=== PATIENT | female | born 1985 | race Caucasian/White ===

== ENCOUNTER 2019-08-27 04:50 | Inpatient (IN) | payer OTHER ==
[~2019-08-27] VITALS: Ht 160 cm; Wt 79.5 kg
[2019-08-27] VITALS (61 sets, daily range): BP systolic 99–149; BP diastolic 52–92; PULSE 63–110; TEMP 97.9–99.5
[~2019-08-27 04:50] MED LIST: ATIVAN 0.50.5 MG/TAB PO; MEDROL 4MG DOSPA4 MG PO; NO HOME MEDICATIONS; bcp
[2019-08-27] MEDS ORDERED: ZOVIRAX400 MG PO (05:54)
[2019-08-27] MEDS ORDERED: PROTONIX20 MG PO (05:56)
[2019-08-27] MEDS ORDERED: PRENATAL TABLET PO (05:57)
[2019-08-27] MEDS ORDERED: TUMS500 MG (05:57)
--- NOTE | 2019-08-27 06:25 | NUR ---
Report recieved from Eldon RN. Patient resting in bed and has no needs at this time. 0640: Patient off monitors to void. Patient on birthing ball 0720: Dr. Amaya at bedside and assessing patient and FHR strip. 0722: Sono done at this time and vertex position confirmed. SVE per physician , no new orders at this time. Patient resting in bed.
[2019-08-27 06:56] LABS: BASO % 0.3 % (0.0-2.0); EOS # 0.1 (0.0-0.7); GRAN # 7.7 (1.4-6.5); GRAN % 74.8 % (42.2-75.2); HEMOGLOBIN 11.3 g/dl (12.5-16.0); LYMPH # 1.8 (1.2-3.4); LYMPH % 17.8 % (20.0-51.0); MEAN CELL VOLUME 87 fl (80.0-100.0); MEAN CORPUSCULAR HEMOGLOBIN 28 pg (27.0-31.0); MEAN CORPUSCULAR HGB CONC 33 g/dl (33.0-37.0); MEAN PLATELET VOLUME 12.5 fl (7.4-10.4); MONO # 0.6 (0.1-0.6); MONO % 5.5 % (1.7-9.3); PLATELET COUNT 161 K/mm3 (130-400); RED BLOOD COUNT 3.99 M/mm3 (4.10-5.30); REDCELL DISTRIBUTION WIDTH-CV 12.8 % (11.5-14.5)
[2019-08-27 07:15] LABS: HEMATOCRIT 34.5 % (37.0-47.0)
--- NOTE | 2019-08-27 08:30 | NUR ---
Patient requesting epidural and Amee ANDRADE notified. LR bolus started. 0840: Patient sitting on edge of bed and Amee ANDRADE at bedside for placement of epidural. Difficulty tracing FHR during this time due to maternal position. 0851: Single shot given and patient tolerates well. 0900: Patient repositiioned and plan of care discussed/safety precations gone over. 0930: Kuhn catheter placed and patient tolerates well. SVE-4-5/85/-1 Patient left lateral and right leg in stirrup.
--- NOTE | 2019-08-27 10:45 | NUR ---
Dr. Amaya at nurses station reviewing FHR strip. Orders to start pitocin at this time. 1053: Pitocin orders/plan of care discussed with patient and patient agrees to plan. Pitocin started at this time per protocol.
--- NOTE | 2019-08-27 12:30 | NUR ---
APRIL--/-[address] Amaya at nurses station updated and reviewing FHR strip, no new orders at this time. 1400:APRIL-/- and Dr. Amaya updated.
--- NOTE | 2019-08-27 18:34 | NUR ---
2 consecutive late declerations down to 135 bpm noted after contractions. Pt repositioned to right lateral with peanut ball.
--- NOTE | 2019-08-27 19:04 | NUR ---
Dr. Amaya at bedside for SVE. /+1. Physician discussing plan of care with patient and spouse. Verbal orders to increase pitocin to 18 mL/hr. Will continue to change patient position frequently to facilitate cervical change.
--- NOTE | 2019-08-27 20:00 | NUR ---
Dr. Amaya at bedside for SVE. Complete/+1. Verbal orders to start pushing with patient.
--- NOTE | 2019-08-27 20:52 | NUR ---
2004 - Pt positioned into footplates. Educated on pushing techniques, pt verbalized understanding. Initial push at this time. 2014 - Pt pushing well with contractions. Variable decelerations down to 90 bpm with pushing with spontaneous return to baseline after contraction. Kuhn catheter removed at this time. 30 mL bloody urine. 2029 - Pt continues to push well with contractions. Variable decelerations down to 90-110 bpm noted with pushes. Spontaneous return to baseline after push. Dr. Amaya updated on pushing progress. Physician remains on unit. 2047 - Pt continues to push well with contractions. Variable decelerations down to 100 bpm noted with pushes with spontaneous return to baseline after pushing. Dr. Amaya called to room for delivery. Nursery updated. 2049 - Dr. Amaya gowned and gloved at perineum, pt continues pushing well. Pericare provided. 2051 - Spontaneous vaginal delivery of viable girl. Nuchal cord x 1, reduced easily. Infant placed on mother's abdomen. Care of infant assumed to Nursery RNCherry RN. Cord clamped x 2 and cut by FOB. Pitocin off. 2054 - Spontaneous delivery of intact placenta. Repair of second degree laceration by Dr. Amaya. Pitocin restarted at 333 mL/hr per protocol. Fundal massage by Dr. Amaya, firm and at umbilicus. Epidural off. 2114 - Pericare provided. New chux beneath patient. Ice pack to perineum. Pt repositioned in bed for comfort. recovery started. See physician delivery note.
--- NOTE | 2019-08-27 23:10 | NUR ---
Pt able to lift and hold each leg off of bed for 5 seconds. Pt repositioned to sitting on edge of bed. Epidural catheter removed at this time. Tip smooth, blue, and intact. Pt tolerated procedure well. Pt able to ambulate to bathroom independently. Pt able to void 500 mL bloody urine. Pericare explained and provided. Mesh panties and peripad applied. Clean gown on. Pt transferred to room 207 with belongings.
[2019-08-28 00:14] VITALS: BP 108/40; PULSE 86; TEMP 99
[2019-08-28 05:15] VITALS: BP 105/65; PULSE 80; TEMP 97.6
[2019-08-28 08:02] VITALS: BP 109/51; PULSE 75; TEMP 97.3
[2019-08-28 08:26] LABS: HEMATOCRIT 29.9 % (37.0-47.0); HEMOGLOBIN 9.7 g/dl (12.5-16.0)
--- NOTE | 2019-08-28 10:14 | NUR ---
Initial visit attempt; Nurses with patient, Credit Collector left card of congratulations for the of her daughter and information regarding the availability of spiritual care at our hospital.
[2019-08-28] MEDS ORDERED: MOTRIN 800800 MG/TAB PO (15:43)
[2019-08-28 21:00] VITALS: BP 109/60; PULSE 80
[2019-08-29 08:15] VITALS: BP 109/58; PULSE 85; TEMP 97.3
[2019-08-29] MEDS ORDERED: NEWMANS TOP (11:18)
== END 2019-08-29 12:30 | disposition home or self-care (01) | DRG 807 ==
LOC: LDRO 04:50 → OB 05:30 → LDR 05:30 → OB 23:42 → LDRO 08-30 14:18
PROVIDERS: Obstetrics & Gynecology; ADMIT Obstetrics & Gynecology
PROC: 10E0XZZ Delivery of Products of Conception, External Approach (ICD-10-PCS; principal; 2019-08-27)
PROC: 0KQM0ZZ Repair Perineum Muscle, Open Approach (ICD-10-PCS; 2019-08-27)
DX: O69.81X0 Labor and delivery complicated by cord around neck, without compression, not applicable or unspecified (principal); Z37.0 Single live birth; O70.1 Second degree perineal laceration during delivery; O99.334 Smoking (tobacco) complicating childbirth; F17.210 Nicotine dependence, cigarettes, uncomplicated; Z3A.39 39 weeks gestation of pregnancy; Z23 Encounter for immunization
CPT/HCPCS: J2405; J2590; J2795; J7120

== ENCOUNTER → 2019-10-04 | Outpatient (CLI) | payer OTHER ==
[~2019-10-04] MED LIST changes: +MOTRIN 800800 MG/TAB PO; +NEWMANS TOP; +PRENATAL TABLET PO; +PROTONIX20 MG PO; +TUMS500 MG; +ZOVIRAX400 MG PO
--- NOTE | 2019-10-04 13:34 | NUR ---
Pt, Darling Madison, in for outpatient consult with 5 week old baby girl, Robby Head, with concerns about long feedings, latch quality and sore nipples. Robby was born on [birth year] to this first time mom by and weighed 6#6.5oz (2905 gms). Pt states she uses nipple shield at some feedings, but the primary concern is that Robby will nurse for 40+ minutes per breast each feeding and still be hungry so she is supplemented 2-3oz EBM, after which Darling still has to pump to have enough supplement for next feeding. Today Robby weighs 8#9.2oz (3890 gms), a gain of 4 ounces from her appointment with Dr. Urrutia on 09/29/19 where pt reports she weighed 8#5oz. Pt places Robby to the left breast first and finds latch more comfortable with the cross cradle. Robby nurses bilaterally for about 10-15 minutes before her effort dwindles. Post feed weight is 8#12.4oz (3978 gms) for a gain of 3.0oz (84gms). Robby continues to act hungry so is provided 3oz EBM by bottle. Pt pumps about 1oz after the feeding. LC evaluates Robby's oral structures and notes a mildly elevated hard palate that may make compression of the nipple against the roof of the mouth difficult so she does not thouroughly empty the breast. She may have a slight tongue tie as well; she can extend the tounge across the lip but as the nursing proceeds she start making clicking noises associated with the tongue dropping off the nipple. With suck evaluation on a gloved finger Robby extends her tongue nicely but does have a [id number] motion with the tongue sliding in and out. She seems to keep the tongue across the gum line but this motion would contribute to the baby not staying latched well. POC: Continue but limit time at breast to 10-15 min per side. Continue supplement of EBM, 2-3oz, followed by pumping. Consider further evaluation for tongue tie with provider that manages treatment. F/U: Walk-in clinic on Tuesdays as desired, with Dr. Urrutia as scheduled. Questions invited and answered.
== END ==
LOC: OLC 12:52
DX: Z39.1 Encounter for care and examination of lactating mother (principal)

== ENCOUNTER → 2021-10-27 | Outpatient (CLI) | payer OTHER | LOC: COL.RAD 10:06 | DX: R10.11 Right upper quadrant pain (principal) ==

== ENCOUNTER 2022-03-02 19:41 | Inpatient (IN) | payer OTHER ==
[2022-03-02] VITALS (15 sets, daily range): BP systolic 100–154; BP diastolic 57–93; PULSE 59–96; TEMP 98.5
[~2022-03-02] VITALS: Ht 160 cm; Wt 80.0 kg
--- NOTE | 2022-03-02 19:45 | NUR ---
PT TO UNIT VIA WHEELCHAIR WITH SPOUSE WITH COMPLAINTS OF CONTRACTIONS. PT ORIENTED TO ROOM, CHANGED INTO GOWN, EFMX2 APPLIED, VS OBTAINED, SVE PERFORMED.
[2022-03-02 20:13] LABS: MEAN CELL VOLUME 83 fl (80.0-100.0); MEAN CORPUSCULAR HEMOGLOBIN 27 pg (27-31); MEAN CORPUSCULAR HGB CONC 33 g/dl (33.0-37.0); MEAN PLATELET VOLUME 12.6 fl (7.4-10.4); PLATELET COUNT 157 K/mm3 (130-400); RED BLOOD COUNT 4.38 M/mm3 (4.10-5.30); REDCELL DISTRIBUTION WIDTH-CV 13.9 % (11.5-14.5)
[2022-03-02 20:16] LABS: HEMATOCRIT 36.2 % (37.0-47.0)
--- NOTE | 2022-03-02 20:17 | NUR ---
2006- LUPE ANDINO IN ROOM FOR EPIDURAL PLACEMENT. PT SITTING UP AT BEDSIDE. DIFFICULTY TRACTING CONTRACTIONS AND FHTs DUE TO MATERNAL POSITIONING. 2008- TEST DOSE GIVEN BY Aurora PERALES CRNA, PT TOLERATED WELL. 2016- PT REPOSITIONED INTO [facility] FOLLOWING EPIDURAL.
[2022-03-02 20:58] LABS: BAND 2 % (0-10); NEUTROPHILS 64 % (42.0-75.2); PLATELET ESTIMATE NORMAL (NORMAL)
[2022-03-02 20:59] LABS: LYMPHOCYTE 29 % (20.0-51.0)
--- NOTE | 2022-03-02 22:40 | NUR ---
2103- DR. BARRERA IN ROOM TO EVALUATE PT. PERFORMS AROM, CLEAR FLUID, /-2. PT REPOSITIONED TO LEFT WEDGE. 2200- DR. BARRERA IN ROOM TO EVALUATE PT. SVE OF COMPLETE/+1 2205- MATT DC'D, 150MLS 2214- DR. BARRERA IN ROOM FOR DELIVERY. 2217- PT BEGINS PUSHING. 2220- SPONTANEOUS VAGINAL DELIVERY OF VIABLE BABY GIRL. BABY TO MOTHER'S ABDOMEN, CORD CLAMPED BY DR. BARRERA, CUT BY FOB. BABY CARES ASSUMED BY Phyllis KNIGHT RN. 2224- SPONTANEOUS DELIVERY OF INTACT PLACENTA. PITOCIN STARTED AT 333ML/HR PER PROTOCOL. DR. BARRERA REPAIRS 2ND DEGREE LACERATION. 2239- RECOVERY STARTED.
[2022-03-03] VITALS (7 sets, daily range): BP systolic 111–130; BP diastolic 63–71; PULSE 58–78; TEMP 97.4–98.3
[2022-03-03] MEDS ORDERED: MOTRIN 800800 MG/TAB PO (08:26)
--- NOTE | 2022-03-03 13:24 | NUR ---
Initial visit; Parents thanked [employer] Worker for offering congratulations and God's blessings for the of their daughter. [facility] [employer] [facility] Worker thanked family for choosing [facility].
[2022-03-04 08:43] VITALS: BP 120/79; PULSE 67; TEMP 97.8
== END 2022-03-04 09:35 | disposition home or self-care (01) | DRG 807 ==
LOC: LDRO 19:41 → LDR 19:56 → OB 19:56
PROVIDERS: Obstetrics & Gynecology; ADMIT Obstetrics & Gynecology
PROC: 10E0XZZ Delivery of Products of Conception, External Approach (ICD-10-PCS; principal; 2022-03-02)
PROC: 0KQM0ZZ Repair Perineum Muscle, Open Approach (ICD-10-PCS; 2022-03-02)
PROC: 10907ZC Drainage of Amniotic Fluid, Therapeutic from Products of Conception, Via Natural or Artificial Opening (ICD-10-PCS; 2022-03-02)
DX: O24.420 Gestational diabetes mellitus in childbirth, diet controlled (principal); Z37.0 Single live birth; Z3A.39 39 weeks gestation of pregnancy; O99.02 Anemia complicating childbirth; D64.9 Anemia, unspecified; O70.1 Second degree perineal laceration during delivery; O99.334 Smoking (tobacco) complicating childbirth; F17.210 Nicotine dependence, cigarettes, uncomplicated
CPT/HCPCS: J7120